=== PATIENT | female | born 1960 | race Caucasian/White ===

== ENCOUNTER 2018-05-12 14:56 | Emergency (ER) | payer OTHER ==
[~2018-05-12] VITALS: Ht 175.3 cm; Wt 145.1 kg
[~2018-05-12 14:56] MED LIST: Z.0.BENICAR HCT 201; Z.0.COREG12.5 MG PO; Z.0.PRADAXA150 MG PO
--- OUTSIDE RECORDS SUMMARY | 2018-05-12 14:59 | XMS REPORT | Encounter Summary ---
Author Organization Unknown Address [address] [place] [address] Phone [phone] Reason for Visit Medical Complaint Instructions 1. Allergic cough Tessalon Perles 100 mg capsule 2. Posterior rhinorrhea fluticasone 50 mcg/actuation nasal spray,suspension 3. Seasonal allergic rhinitis seasonal allergies: care instructions 4. Sore throat symptom rapid strep group A, throat sore throat: care instructions 5. Body mass index 40+ - severely obese Discussion Note Drink plenty of water and other fluids. This may help soothe a dry or sore throat. Honey or lemon juice in hot water or tea may ease a dry cough. Prop up your head on pillows to help you breathe and ease a cough. Do not smoke or allow others to smoke around you. Smoke can make a cough worse. If you need help quitting, talk to your doctor about stop-smoking programs and medicines. These can increase your chances of quitting for good. Avoid exposure to smoke, dust, or other pollutants, or wear a face mask. Check with your doctor or pharmacist to find out which type of face mask will give you the most benefit. Take cough medicine as directed by your doctor. Try cough drops to soothe a dry or sore throat. Cough drops don't stop a cough. Medicine-flavored cough drops are no better than candy-flavored drops or hard candy. Plan of Care Reminders Provider Appointments None recorded. Lab Rapid Strep Group a, Throat 01/01/2018 [facility] Referral None recorded. Procedures None recorded. Surgeries None recorded. Imaging None recorded. Medications Name Start Date carvedilol 25 mg tablet fluticasone 50 mcg/actuation nasal spray,suspension Inhale 1-2 sprays in each nostril 1-2 times/day for 7 days then prn nasal congestion hydrochlorothiazide 12.5 mg capsule Tessalon Perles 100 mg capsule Take 1 capsule 3 times a day by oral route as needed for 10 days. Xarelto 20 mg tablet Medications Administered None recorded. Vitals Height Weight BMI Blood Pressure 5 ft 9 in 300 lbs 44.3 kg/m2 120/80 mm[Hg] Lab Results Date Name Specimen Result Interpretation Description Value Range Status Address Rapid Strep Group a, Throat Result negative [facility]: [address] [place] [address] Swab Location Left and Right tonsillar pillars [facility]: [address] [place] [address] Allergies Code Code System Name Reaction Severity Status Onset Penicillins Hives Active Problems Name Status Onset Date Source Atrial Fibrillation Active 01/01/2018 Procedures Date Name Performed by Cholecystectomy Information not available Information not available Vaccine List None recorded. Social History Smoking Status Never Smoker Past Encounters 01/01/2018 Allergic Cough; Posterior Rhinorrhea; Seasonal Allergic Rhinitis; Sore Throat Symptom; Body Mass Index 40+ - Severely Obese Shwetha Jacques PA-C: [address] [place] [address], Ph. History of Present Illness Cough Reported By: Patient HPI: Location: chest. Quality: hacking cough, dry cough. Duration: 21 days, symptoms lasting over 2 weeks. Severity: mild. Onset/Timing: gradual. Context: no sick contacts, no foreign travel, non-smoker, allergies. Modifying factors: OTC medication. Associated Symptoms: no sputum production, no shortness of breath, no wheezing, no sweats, no significant weight gain, no significant weight loss, no morning cough, no sore throat, no vomiting, no diarrhea, no rash, no nausea, no fever/chills, muscle aches, headache; chest tightness with cough Review of Systems Basic Reported By: Patient Constitutional: Constitutional: no fever Eyes: Eyes: no eye complaints Oppd-Hrbq-Yiayh-Throat: Ears: no ear complaints. Nose: nose/sinus problems. Mouth/Throat: no sore throat, no bleeding gums, no mouth complaints, no teeth problems Cardiovascular: Cardiovascular: no chest pain, no shortness of breath, no known heart murmur Respiratory: Respiratory: no wheezing, no shortness of breath, cough Gastrointestinal: Gastrointestinal: no abdominal pain, no vomiting / diarrhea Genitourinary: Genitourinary: no urinary complaints, no discharge Musculoskeletal: Musculoskeletal: no muscle aches, no muscle weakness, no arthralgias/joint pain, no back pain Skin: Skin: no abnormal / changing mole, no jaundice, no rashes Neurologic: Neurologic: no loss of consciousness, no weakness, no numbness, no seizures, no dizziness, no headaches, headache Physical Exam Adult Basic Reported By: Patient Constitutional: General Appearance: healthy-appearing, morbidly obese. Level of Distress: NAD. Ambulation: ambulating normally Psychiatric: Mental Status: active and alert. Orientation: to time, to place, to person Eyes: Lids and Conjunctivae: non-injected, no discharge, no pallor. Corneas: grossly intact. Lens: clear. Sclerae: non-icteric. Vision: acuity grossly intact Dtw-Pmaz-Xqkfm-Throat: Ears: no lesions on external ear, no outer ear tenderness, EACs clear, TMs clear. Hearing: no hearing loss. Nose: no lesions on external nose, nares patent, no septal deviation, nasal passages clear, no sinus tenderness, post nasal drip; swollen turbinates slight. Lips, Teeth, and Gums: no mouth or lip ulcers, no bleeding gums, normal dentition. Oropharynx: moist mucous membranes, no erythema, no exudates, tonsils not enlarged; cobblestoning Neck: Neck: supple, trachea midline, no masses, FROM. Lymph Nodes: no cervical LAD, no supraclavicular LAD Lungs: Respiratory effort: no dyspnea, no tachypnea, no use of accessory muscles, no intercostal retractions. Auscultation: breath sounds normal Cardiovascular: Heart Auscultation: RRR, no murmurs
--- OUTSIDE RECORDS SUMMARY | 2018-05-12 14:59 | XMS REPORT | Encounter Summary ---
Author Organization Unknown Address [address] [place] [address] Phone [phone] Reason for Visit Medical Complaint Instructions 1. Streptococcal sore throat strep throat: care instructions rapid strep group A, throat azithromycin 250 mg tablet 2. Upper respiratory infection upper respiratory infection (cold): care instructions 3. Feeling feverish rapid flu (A+B) Discussion Note: None recorded. Plan of Care Patient Instructions consider a trial of flonase and zyrtec if you havent already. take rx as directed. otc tylenol or ibuprofen prn. change toothbrush after 3 days. do not share or eat after one another. follow up pcp Reminders Provider Appointments None recorded. Lab Rapid Flu (A+B) 04/10/2017 [facility] Rapid Strep Group a, Throat 04/10/2017 [facility] Referral None recorded. Procedures None recorded. Surgeries None recorded. Imaging None recorded. Medications Name Start Date azithromycin 250 mg tablet Take 2 tablets (500 mg) by oral route once daily for 1 day then 1 tablet (250 mg) by oral route once daily for 4 days carvedilol 25 mg tablet hydrochlorothiazide 12.5 mg capsule hydrocodone 5 mg-acetaminophen 325 mg tablet Pradaxa 150 mg capsule Medications Administered None recorded. Vitals Height Weight BMI Blood Pressure 5 ft 9 in 300 lbs 44.3 kg/m2 122/80 mm[Hg] Lab Results Date Name Specimen Result Interpretation Description Value Range Status Address Rapid Strep Group a, Throat Result positive [facility]: [address] [place] [address] Swab Location Left and Right tonsillar pillars [facility]: [address] [place] [address] Rapid Flu (A+B) Influenza a negative [facility]: [address] [place] [address] Influenza B negative [facility]: [address] [place] [address] Allergies Code Code System Name Reaction Severity Status Onset Penicillins Hives Active Problems Name Status Onset Date Source Acute Sinusitis Active Encounter Acute Bronchitis Active Encounter Procedures Date Name Performed by Cholecystectomy Information not available Information not available Vaccine List None recorded. Social History Smoking Status Never Smoker Past Encounters 04/10/2017 Streptococcal Sore Throat; Upper Respiratory Infection; Feeling Feverish Félix Fowler, [facility]: [address] [facility], [place] [address], Ph. History of Present Illness Veiyo-Tsqhqsdfel-Aartuws Reported By: Patient HPI: Location: head/sinuses, throat, chest. Quality: sore throat, nasal/sinus congestion, dry cough. Duration: 3days. Severity: moderate. Onset/Timing: gradual. Context: no foreign travel, non-smoker, sick contact. Modifying factors: OTC medication. Associated Symptoms: no sputum production, no shortness of breath, no wheezing, no change in number of pillows needed to sleep at night, no sweats, no signific ant weight gain, no significant weight loss, no morning cough, no vomiting, no diarrhea, no rash, no nausea, no fever, no muscle aches, no headache, sore throat Review of Systems:ROS as noted in the HPI Review of Systems Basic Reported By: Patient Physical Exam Adult Basic, Adult Female Complete Reported By: Patient Constitutional: General Appearance: morbidly obese. Level of Distress: NAD. Ambulation: ambulating normally Psychiatric: Mental Status: active and alert Eyes: Lids and Conjunctivae: non-injected, no discharge Ipv-Dsyv-Etlxd-Throat: Ears: no lesions on external ear, no outer ear tenderness, EACs clear, TMs clear. Hearing: no hearing loss. Nose: no lesions on external nose, nasal discharge--rhinorrhea; congestion. Lips, Teeth, and Gums: no mouth or lip ulcers. Oropharynx: moist mucous membranes, no erythema, no exudates, tonsils not enlarged Neck: Neck: trachea midline. Lymph Nodes: no cervical LAD Lungs: Respiratory effort: no dyspnea, no tachypnea, no use of accessory muscles, no intercostal retractions. Auscultation: breath sounds normal Cardiovascular: Heart Auscultation: RRR, no murmurs
--- OUTSIDE RECORDS SUMMARY | 2018-05-12 14:59 | XMS REPORT | Continuity of Care Document ---
Author Author [facility] Interface Address Unknown Phone Unavailable Problems Problem Status Onset Date Classification Date Reported Comments Source Sore throat symptom 01/01/2018 Diagnosis 01/01/2018 [facility] Seasonal allergic rhinitis 01/01/2018 Diagnosis 01/01/2018 [facility] Posterior rhinorrhea 01/01/2018 Diagnosis 01/01/2018 [facility] Allergic cough 01/01/2018 Diagnosis 01/01/2018 [facility] Body mass index 40+ - severely obese 01/01/2018 Diagnosis 01/01/2018 [facility] Atrial Fibrillation 01/01/2018 Problem 01/01/2018 [facility] Streptococcal sore throat 04/10/2017 Diagnosis 04/10/2017 [facility] Upper respiratory infection 04/10/2017 Diagnosis 04/10/2017 [facility] Feeling feverish 04/10/2017 Diagnosis 04/10/2017 [facility] Acute Sinusitis Problem 04/10/2017 [facility] Acute Bronchitis Problem 04/10/2017 [facility] Medications Medication Details Route Status Patient Instructions Ordering Provider Order Date Source Azithromycin 250 MG Oral Tablet azithromycin 250 mg tablet Take 2 tablets (500 mg) by oral route once daily for 1 day then 1 tablet (250 mg) by oral route once daily for 4 days Active [facility] carvedilol 25 MG Oral Tablet carvedilol 25 mg tablet Active [facility] Hydrochlorothiazide 12.5 MG Oral Capsule hydrochlorothiazide 12.5 mg capsule Active [facility] Acetaminophen 325 MG / Hydrocodone Bitartrate 5 MG Oral Tablet hydrocodone 5 mg-acetaminophen 325 mg tablet Active [facility] dabigatran etexilate 150 MG Oral Capsule [Pradaxa] Pradaxa 150 mg capsule Active [facility] Fluticasone propionate 0.05 MG/ACTUAT Metered Dose Nasal Golden fluticasone 50 mcg/actuation nasal spray,suspension Inhale 1-2 sprays in each nostril 1-2 times/day for 7 days then prn nasal congestion Active [facility] benzonatate 100 MG Oral Capsule [Tessalon Perles] Tessalon Perles 100 mg capsule Take 1 capsule 3 times a day by oral route as needed for 10 days. Active [facility] rivaroxaban 20 MG Oral Tablet [Xarelto] Xarelto 20 mg tablet Active [facility] Allergies, Adverse Reactions, Alerts Substance Category Reaction Severity Reaction type Status Date Reported Comments Source Penicillins Hives Allergy to substance 08/04/2009 [facility] Immunizations Immunization Date Given Site Status Last Updated Comments Source Results Order Name Results Value Reference Range Date Interpretation Comments Source RESULT negative 01/01/2018 [facility] SWAB LOCATION Left and Right tonsillar pillars 01/01/2018 [facility] RESULT positive 04/10/2017 [facility] SWAB LOCATION Left and Right tonsillar pillars 04/10/2017 [facility] Influenza A negative 04/10/2017 [facility] Influenza B negative 04/10/2017 [facility] Vital Signs Vital Sign Value Date Comments Source Diastolic (mm Hg) 80 01/01/2018 [facility] Height 69 01/01/2018 [facility] Systolic (mm Hg) 120 01/01/2018 [facility] Weight 300 01/01/2018 [facility] Diastolic (mm Hg) 80 04/10/2017 [facility] Height 69 04/10/2017 [facility] Systolic (mm Hg) 122 04/10/2017 [facility] Weight 300 04/10/2017 [facility] Encounters Location Location Details Encounter Type Encounter Number Reason For Visit Attending Provider ADM Date DC Date Status Source [place] - [facility] - [id number] SHERIF ToussaintP-C: [address] [place] [address], Ph. [id number] Félix Fowler 04/10/2017 [facility] [place] [facility] [id number] VICKIE VillatoroC: [address] [place] [address], Ph. [id number] Shwetha Jacques 01/01/2018 [facility] Procedures Procedure Code Date Perfomer Comments Source Cholecystectomy [facility]
--- NOTE | 2018-05-12 15:30 | NUR ---
DR. GÓMEZ IN TRIAGE FOR ASSESSMENT
[2018-05-12] MEDS ORDERED: SODIUM CHLORIDE 0.9% 1000ML 1,000 ML IV STA (15:33)
[2018-05-12 15:50] LABS: BASOPHILS % 0.5 % (0.0-1.0); EOSINOPHILS # (AUTO) 0.2 (0.0-0.4); EOSINOPHILS % 2.5 % (0.0-6.0); HEMATOCRIT 44.1 % (34.2-44.1); HEMOGLOBIN 14.5 g/dL (12.0-16.0); LYMPHOCYTES # (AUTO) 1.9 (1.0-3.2); MEAN CORPUSCULAR HEMOGLOBIN 28.2 pg (28-32); MEAN CORPUSCULAR HGB CONC 32.9 g/dL (31-35); MEAN CORPUSCULAR VOLUME 85.6 fL (81-99); MONOCYTES # (AUTO) 0.6 (0.2-0.8); MONOCYTES % 9.6 % (4.4-11.3); NEUTROPHILS # (AUTO) 3.4 (2.1-6.9); NEUTROPHILS % 56.1 % (38.7-80.0); PLATELET COUNT 252 x10e3/uL (140-360); RED BLOOD COUNT 5.15 x10e6/uL (3.6-5.1); RED CELL DISTRIBUTION WIDTH 12.9 % (11.7-14.4)
[2018-05-12 15:58] LABS: INR 1.07; PROTHROMBIN TIME 14.9 seconds (11.9-14.5)
[2018-05-12 15:59] LABS: PARTIAL THROMBOPLASTIN TIME 36.5 seconds (23.8-35.5)
[2018-05-12 16:06] LABS: ALANINE AMINOTRANSFERASE 18 IU/L (0-55); ALBUMIN 3.7 g/dL (3.5-5.0); ALBUMIN/GLOBULIN RATIO 1.2 (0.8-2.0); ALKALINE PHOSPHATASE 83 IU/L (40-150); ANION GAP 15.5 mmol/L (8-16); BLOOD UREA NITROGEN 9 mg/dL (7-26); BUN/CREATININE RATIO 13 (6-25); CALCIUM 9.8 mg/dL (8.4-10.2); CARBON DIOXIDE 25 mmol/L (22-29); CHLORIDE 103 mmol/L (98-107); CREATINE KINASE 30 IU/L (29-168); EST GLOMERULAR FILTRATION RATE > 60 ML/MIN (60-); GLUCOSE 101 mg/dL (74-118); POTASSIUM 3.5 mmol/L (3.5-5.1); SODIUM 140 mmol/L (136-145)
--- NOTE | 2018-05-12 16:27 | Diagnostic Imaging Report ---
EXAMINATION: PA and lateral views of the chest. COMPARISON: Chest radiograph 01/24/2012 CLINICAL HISTORY: Chest pain, atrial fibrillation, low blood pressure DISCUSSION: The lungs are well-inflated. No focal airspace consolidation, pleural effusion, or pneumothorax. Stable cardiomediastinal contour with tortuosity and atherosclerotic calcification of the thoracic aorta. No pulmonary edema. No acute osseous abnormality. IMPRESSION: No acute cardiopulmonary abnormalities. Signed by: Dr. Jimenez Murry M.D. on 05/12/2018 4:23 PM
[2018-05-12 19:10] VITALS: BP 121/73
== END 2018-05-12 19:37 | disposition home or self-care (01) ==
LOC: ER 14:56
DX: I48.0 Paroxysmal atrial fibrillation (principal); Z79.01 Long term (current) use of anticoagulants
CPT/HCPCS: 36415; 71046; 80053; 82550; 82553; 83880; 84484; 85025; 85610; 85730; 93005; 99284; J7030